=== PATIENT | female | born 1990 | race African-American/Black ===

== ENCOUNTER 2016-09-30 12:30 | Emergency (ER) | payer OTHER ==
[2016-09-30 13:45] VITALS: BP 127/79
== END 2016-09-30 13:45 | disposition home or self-care (01) ==
LOC: ED 12:30
DX: M54.5 Low back pain (principal); I10 Essential (primary) hypertension

== ENCOUNTER 2017-03-01 16:03 | Emergency (ER) | payer OTHER ==
[2017-03-01 16:40] VITALS: BP 140/78
== END 2017-03-01 19:08 | disposition home or self-care (01) ==
LOC: ED 16:03
DX: I10 Essential (primary) hypertension (principal); Z88.1 Allergy status to other antibiotic agents

== ENCOUNTER 2017-06-27 15:43 | Emergency (ER) | payer OTHER ==
[~2017-06-27] VITALS: Ht 170.2 cm; Wt 109.3 kg
[2017-06-27 15:53] VITALS: Ht 170.2 cm; Wt 109.3 kg
[2017-06-27 18:24] VITALS: BP 140/103
== END 2017-06-27 18:24 | disposition home or self-care (01) ==
LOC: ED 15:43
DX: J98.01 Acute bronchospasm (principal); T78.40XA Allergy, unspecified, initial encounter; R03.0 Elevated blood-pressure reading, without diagnosis of hypertension; Z88.1 Allergy status to other antibiotic agents; X58.XXXA Exposure to other specified factors, initial encounter
CPT/HCPCS: J7512; J7613

== ENCOUNTER 2017-12-14 03:21 | Emergency (ER) | payer SELFPAY ==
[~2017-12-14] VITALS: Ht 170.2 cm; Wt 111.1 kg
[2017-12-14 03:32] VITALS: Ht 170.2 cm; Wt 111.1 kg
[2017-12-14 04:30] VITALS: BP 145/82
== END 2017-12-14 04:30 | disposition home or self-care (01) ==
LOC: ED 03:21
DX: S70.361A Insect bite (nonvenomous), right thigh, initial encounter (principal); L03.115 Cellulitis of right lower limb; Z88.1 Allergy status to other antibiotic agents; W57.XXXA Bitten or stung by nonvenomous insect and other nonvenomous arthropods, initial encounter; Y93.89 Activity, other specified; Y92.89 Other specified places as the place of occurrence of the external cause; Y99.8 Other external cause status
CPT/HCPCS: J0696

== ENCOUNTER 2019-03-15 17:53 | Emergency (ER) | payer OTHER ==
[~2019-03-15] VITALS: Ht 165.1 cm; Wt 113.4 kg
[2019-03-15 17:59] VITALS: Ht 165.1 cm; Wt 113.4 kg
[2019-03-15 19:00] VITALS: BP 161/88
== END 2019-03-15 19:00 | disposition home or self-care (01) ==
LOC: ED 17:53
DX: M13.162 Monoarthritis, not elsewhere classified, left knee (principal); M13.861 Other specified arthritis, right knee; Z88.1 Allergy status to other antibiotic agents
CPT/HCPCS: J2920